=== PATIENT | male | born 1965 | race Caucasian/White ===

== ENCOUNTER 2017-01-12 10:13 | Inpatient (IN) | payer OTHER ==
[~2017-01-12] VITALS: Ht 167.6 cm; Wt 76.2 kg
[2017-01-12 11:16] LABS: BASOPHIL % 0.4 % (0-2); PLATELET COUNT 142 x10^3mcL (130-400); RED CELL DISTRIBUTION WIDTH 12.7 % (11.5-14.5)
[2017-01-12 11:25] LABS: CALCIUM 8.8 mg/dL (8.5-10.1); CARBON DIOXIDE 31.4 mmol/L (21-32); CHLORIDE SERUM 104 mmol/L (98-107); GFR1 > 60 mL/min; GLUCOSE SERUM 105 mg/dL (74-106); POTASSIUM SERUM 4.4 mmol/L (3.5-5.1); SODIUM SERUM 140 mmol/L (136-145)
[2017-01-12 11:32] LABS: ALBUMIN 3.8 g/dL (3.4-5.0); ALKALINE PHOSPHATASE 96 U/L (46-116); ALT/SGPT 56 U/L (16-63); AMYLASE 59 U/L (25-115); AST/SGOT 30 U/L (15-37); BILIRUBIN TOTAL 0.5 mg/dL (0.20-1.00); CHOLESTEROL 195 mg/dL (<200); HDL CHOLESTEROL 43 mg/dL (40-60); LIPASE 78 IU/L (73-393); TOTAL PROTEIN, SERUM 7.5 g/dL (6.4-8.2)
[2017-01-12 11:37] LABS: MAGNESIUM 2.3 mg/dL (1.8-2.4)
[2017-01-12 13:27] LABS: T3 TOTAL 0.97 ng/mL
[2017-01-12 13:47] VITALS: BP 116/74
[2017-01-12 13:53] LABS: AMPHETAMINE QUAL UR NONE DETECTED (NEG <=1000)
[2017-01-12 13:57] LABS: CHOLESTEROL/HDL RATIO 4.5
[2017-01-12 14:11] LABS: FREE T4 0.9 ng/dL (0.76-1.46); FREE THYROXINE INDEX 2.3 ug/dL (1.4-4.5); T4(THYROXINE) 6.1 ug/dL (4.7-13.3)
[2017-01-12 21:15] VITALS: BP 107/60
[2017-01-13 05:20] VITALS: BP 126/79
[2017-01-13 07:30] LABS: BASOPHIL % 0.5 % (0-2); RED CELL DISTRIBUTION WIDTH 12.7 % (11.5-14.5)
[2017-01-13 07:43] LABS: PLATELET COUNT 123 x10^3mcL (130-400)
[2017-01-13 07:45] LABS: CALCIUM 8.4 mg/dL (8.5-10.1); CARBON DIOXIDE 25.9 mmol/L (21-32); CHLORIDE SERUM 105 mmol/L (98-107); CREATININE SERUM 0.9 mg/dL (0.7-1.3); GFR1 > 60 mL/min; GLUCOSE SERUM 92 mg/dL (74-106); MAGNESIUM 2.1 mg/dL (1.8-2.4); PHOSPHOROUS 2.5 mg/dL (2.5-4.9); POTASSIUM SERUM 3.9 mmol/L (3.5-5.1); SODIUM SERUM 138 mmol/L (136-145)
[2017-01-13 09:20] VITALS: BP 113/79
[2017-01-13 13:10] VITALS: BP 96/72
[2017-01-13 17:18] VITALS: BP 108/71
[2017-01-13 21:53] VITALS: BP 106/75
[2017-01-14 08:55] LABS: CALCIUM 8.4 mg/dL (8.5-10.1); CARBON DIOXIDE 28.5 mmol/L (21-32); CHLORIDE SERUM 108 mmol/L (98-107); CREATININE SERUM 0.9 mg/dL (0.7-1.3); GFR1 > 60 mL/min; MAGNESIUM 2.2 mg/dL (1.8-2.4); PHOSPHOROUS 2.9 mg/dL (2.5-4.9); POTASSIUM SERUM 3.7 mmol/L (3.5-5.1); SODIUM SERUM 142 mmol/L (136-145)
[2017-01-14 08:56] LABS: BASOPHIL % 0.7 % (0-2); RED CELL DISTRIBUTION WIDTH 13.2 % (11.5-14.5)
[2017-01-14] MEDS ORDERED: GOOD SENSE ASPI81 M3 PO (09:06)
[2017-01-14] MEDS ORDERED: LIPI20 PO (09:09)
[2017-01-14 10:02] LABS: PLATELET COUNT 127 x10^3mcL (130-400)
[2017-01-14 10:46] VITALS: BP 114/76
[2017-01-14 10:58] LABS: GLUCOSE SERUM 96 mg/dL (74-106)
[2017-01-14 11:11] VITALS: BP 114/76
[2017-01-14 12:50] VITALS: BP 114/76
[2017-01-14 12:54] VITALS: BP 114/76
== END 2017-01-14 13:00 | disposition home or self-care (01) | DRG 206 ==
LOC: ED 10:13 → DU 12:13
PROVIDERS: Emergency Medicine; ADMIT Family Medicine
DX: M94.0 Chondrocostal junction syndrome [Tietze] (principal); E83.51 Hypocalcemia; D69.6 Thrombocytopenia, unspecified; E78.00 Pure hypercholesterolemia, unspecified; F41.9 Anxiety disorder, unspecified; R00.0 Tachycardia, unspecified; F10.20 Alcohol dependence, uncomplicated; E78.5 Hyperlipidemia, unspecified; Z68.27 Body mass index [BMI] 27.0-27.9, adult
CPT/HCPCS: 83880; 84439; G0480; J7030; Q0092